=== PATIENT | female | born 1975 | race Caucasian/White ===

== ENCOUNTER 2025-05-15 12:50 | Emergency (ER) | payer OTHER ==
[~2025-05-15] VITALS: Ht 170.2 cm; Wt 59.0 kg
[2025-05-15 13:17] LABS: *BILIRUBIN,URIN NEGATIVE (NEGATIVE); *BLOOD, URINE NEGATIVE (NEGATIVE); *CLARITY,URINE CLEAR (CLEAR); *COLOR,URINE YELLOW (YELLOW); *KETONES,URINE TRACE (NEGATIVE); *PROTEIN,URINE NEGATIVE (NEGATIVE); *UROBILINOGEN,URINE 0.2 E.U./dl (NORMAL); LEUKOCYTE ESTERASE ,URINE NEGATIVE (NEGATIVE); NITRITE, URINE NEGATIVE (NEGATIVE); UGLUCOSE NEGATIVE (NEGATIVE)
[2025-05-15 13:23] LABS: PLATELET COUNT (AUTO) 308 K/uL (179-408); RED BLOOD CELL COUNT(AUTO) 4.38 MIL/uL (3.63-4.92); RED CELL DISTRIBUTION WIDTH 14.9 % (12.3-17.7); WHITE BLOOD COUNT (AUTO) 5.8 K/uL (3.8-11.8)
[2025-05-15 13:26] LABS: *AMPHETAMINE, URINE NEGATIVE (NEGATIVE); *BARBITURATE, URINE NEGATIVE (NEGATIVE); *BENZODIAZEPINE, URINE NEGATIVE (NEGATIVE); *CANNABINOID, URINE NEGATIVE (NEGATIVE); *COCCAINE, URINE NEGATIVE (NEGATIVE); *OPIATE, URINE NEGATIVE (NEGATIVE); *PHENCYCLIDINE SCREEN,URINE NEGATIVE (NEGATIVE); FENTANYL, URINE NEGATIVE (NEGATIVE)
[2025-05-15 13:42] LABS: CREATININE 0.6 mg/dL (0.6-1.3); SODIUM SERUM 146 mmol/L (136-145); UREA NITROGEN, BLOOD 16 mg/dL (7-18)
[2025-05-15 13:47] LABS: ASPARTATE AMINOTRANSFERASE 14 U/L (15-37); ETHANOL 131.0 MG/DL (0-10); TOTAL PROTEIN, SERUM 6.9 g/dL (6.4-8.2)
[2025-05-15 13:51] LABS: LACTIC ACID 2.8 mmol/L (0.4-2.0)
[2025-05-15 17:21] VITALS: BP 122/82
[2025-05-15 18:12] VITALS: BP 134/85; TEMP 97.5; O2SAT 97
== END 2025-05-15 18:34 | disposition home or self-care (01) ==
LOC: ER 12:50
DX: F10.129 Alcohol abuse with intoxication, unspecified (principal); E87.20 Acidosis, unspecified; G47.419 Narcolepsy without cataplexy; Y90.9 Presence of alcohol in blood, level not specified
CPT/HCPCS: 36415; 70450; 83605; 85025; A4606; A4663; G0480